=== PATIENT | male | born 2000 | race Two or more races ===

== ENCOUNTER 2023-02-15 18:40 | Emergency (ER) | payer OTHER ==
[2023-02-15 18:49] VITALS: BP 131/71; PULSE 63; RESP 18; TEMP 98.1; BMI 25.9
[2023-02-15] MEDS ORDERED: DIPHTH,PERTUSS(ACELL),TET 0.5 ML DISP.SYRIN IM ONE ×2 (20:11→20:13)
== END 2023-02-15 20:35 | disposition home or self-care (01) ==
LOC: JERFT 18:40
PROC: 0HQGXZZ Repair Left Hand Skin, External Approach (ICD-10-PCS; principal; 2023-02-15)
PROC: 3E0234Z Introduction of Serum, Toxoid and Vaccine into Muscle, Percutaneous Approach (ICD-10-PCS; 2023-02-15)
DX: S61.412A Laceration without foreign body of left hand, initial encounter (principal); W26.8XXA Contact with other sharp object(s), not elsewhere classified, initial encounter
CPT/HCPCS: 90715; 99282-25

== ENCOUNTER 2023-02-23 11:24 | Emergency (ER) | payer OTHER ==
[2023-02-23 11:33] VITALS: BP 116/66; PULSE 58; RESP 16; TEMP 97.8; BMI 24.1
== END 2023-02-23 12:19 | disposition home or self-care (01) ==
LOC: JERFT 11:24
DX: Z48.02 Encounter for removal of sutures (principal)
CPT/HCPCS: 99281-25